=== PATIENT | male | born 1965 | race African-American/Black ===

== ENCOUNTER 2020-09-22 04:31 | Day surgery (SDC) | payer OTHER ==
[2020-09-17 11:57] VITALS: BMI 27.7
[2020-09-22] MEDS ORDERED: PROPOFOL 20 ML ONE (13:44)
[2020-09-22] MEDS ORDERED: KETOROLAC TROMETHAMINE 30 MG/1 ML VIAL ONE (13:50)
[2020-09-22 14:38] VITALS: PULSE 54; TEMP 98
[2020-09-22 15:37] VITALS: BP 134/73
== END 2020-09-22 15:40 | disposition home or self-care (01) ==
LOC: JASU-SURG 04:31
PROVIDERS: ATTEND Urology
PROC: 0TF4XZZ Fragmentation in Left Kidney Pelvis, External Approach (ICD-10-PCS; principal; 2020-09-22 13:00)
DX: N20.0 Calculus of kidney (principal)